=== PATIENT | female | born 1985 | race Caucasian/White ===

== ENCOUNTER 2019-10-05 09:55 | Emergency (ER) | payer MEDICAID, OTHER ==
[~2019-10-05] VITALS: Ht 170.2 cm; Wt 75.9 kg
[~2019-10-05 09:55] MED LIST: ASPI-515 PO; CETI-158 PO; CYAN50003 PO; MELO7.5T31 PO; NORE0.3513 PO
[2019-10-05 09:59] VITALS: BP 118/85
== END 2019-10-05 11:41 | disposition home or self-care (01) ==
LOC: ED 11:27
DX: M54.42 Lumbago with sciatica, left side (principal); M79.662 Pain in left lower leg; Z87.891 Personal history of nicotine dependence
CPT/HCPCS: 93971; 99284; J7512